=== PATIENT | male | born 1995 | race African-American/Black ===

== ENCOUNTER 2021-07-06 17:20 | Emergency (ER) | payer OTHER ==
[~2021-07-06] VITALS: Ht 182.9 cm; Wt 90.0 kg
[2021-07-06] MEDS ORDERED: LORAZEPAM 2MG/ML CPJ IV ONE (19:30)
[2021-07-06] MEDS ORDERED: DIPHENHYDRAMINE 50MG/ML VIAL IM PRN (19:30)
[2021-07-06] MEDS ORDERED: ZIPRASIDONE MESYLATE 20MG/VIAL IM ONE (19:30)
[2021-07-06 19:37] LABS: BASOPHILS % 0.2 % (0.0-2.0); EOSINOPHILS % 0.1 % (0.0-5.0); HEMATOCRIT. 47.8 % (42.0-52.0); HEMOGLOBIN. 15.3 g/dL (14.0-18.0); MEAN CORPUSCULAR HEMOGLOBIN 26.5 pg (28.0-32.0); MONOCYTES % 7.4 % (2.0-8.0); NEUTROPHILS % 81.3 % (40.0-76.0); PLATELET 269 x1000/uL (130-400); RED BLOOD CELL COUNT 5.76 mill/uL (4.7-6.1); RED CELL DISTRIBUTION WIDTH 14.5 % (11.6-14.6)
[2021-07-06 19:46] LABS: CHLORIDE 107 mEq/L (98-107)
[2021-07-06 19:50] LABS: ETHANOL BLOOD < 10 mg/dL
[2021-07-06] MEDS ORDERED: LORAZEPAM 2MG/ML CPJ IV SCH (23:15)
[2021-07-06] MEDS ORDERED: ZIPRASIDONE MESYLATE 20MG/VIAL IM SCH (23:15)
[2021-07-07] VITALS: BP 134/78
== END 2021-07-07 01:27 ==
LOC: EDBD 17:20 → ER 17:20
DX: R00.0 Tachycardia, unspecified (principal); R45.1 Restlessness and agitation
CPT/HCPCS: 36415; 80048; 80320; 85025; 96372; 99283; J1200; J2060; J3486; G0480